=== PATIENT | male | born 1965 | race Hispanic/Latino ===

== ENCOUNTER 2022-09-16 09:31 | Emergency (ER) | payer OTHER ==
--- OUTSIDE RECORDS SUMMARY | 2022-09-16 09:34 | XMS REPORT | Continuity of Care Document ---
:1965 Author Organization [facility] t Address [address] [place] [address] [place] [id number] Care Team Providers Name Role [facility] Primary Care Physician Unavailable Darci Grande Attending Clinician DARCI KHAN Attending Clinician Unavailable JORJE Attending Clinician Unavailable DARCI KHAN Admitting Clinician Unavailable JORJE Admitting Clinician Unavailable Payers Payer Name Policy Type Policy Number Effective Date Expiration Date S ourkwabena Problems Condition Condition Condition Status Onset Resolution Last Treating Co mments Source Name Details Category Date Date Treatment Clinician Date No known No known Disease Unive rs active active ity of problems problems [facility] Allergies, Adverse Reactions, Alerts Allergy Allergy Status Severity Reaction(s) Onset Inactive Treating Comm ents Source Name Type Date Date Clinician NO KNOWN Drug Active Univers ALLERGIE Class ity of S [facility] Social History Social Habit Start Date Stop Date Quantity Comments Source Exposure to 2022-01-08 2022-01-18 Unable to assess Univers ity of SARS-CoV-2 00:00:00 15:54:00 [facility] (event) [place] Alcohol intake 2015-04-28 2015-04-28 Current drinker Unive rsity of 00:00:00 00:00:00 of alcohol [facility] (finding) [place] Sex Ass[birth year] At [birth year] Universit y of 00:00:00 00:00:00 [facility] Smoking Status Start Date Stop Date Source Never smoked tobacco [facility] Medications Ordered Filled Start Stop Current Ordering Indication Dosage Frequency Signature Comments Components Source Medication Medication Date Date Medication? Clinician (SIG) Name Name ondansetron 4mg 4 mg, Slow Univers (ZOFRAN 01-18 IV Push, ity of (PF)) 21:00: 21:07 ONCE, 1 [place] injection 4 00 :00 dose, On Medi madhu mg Mon Branch 01/18/22 at 1600, KIMMIE ondansetron Yes [id number] 4mg Take 1 Univers 4 mg 01-18 tablet by ity of disintegrat 00:00: mouth [place] ing tablet 00 every 8 Medica l (eight) Branch hours as needed for Nausea and Vomiting (N/V). ciprofloxac Yes [id number] 250mg Take 1 Univers in HCl 250 01-18 tablet by [place]y of mg tablet 00:00[place] 00 the Medical morning [place] and 1 tablet in the evening. traMADOL 2014-05 Yes 50mg Take 1 Tab Uni vers (ULTRAM) 50 2-28 by mouth ity of mg tablet 00:00: every 6 [place] 00 (six) Medical hours as Branch needed for Pain (scale 4-6). Chris Isabel PA-C / Emiliano López MD BILLY# [id number] DPS# [id number] Lic.# [id number] NPI# [id number] Vital Signs Vital Name Observation Time Observation Value Comments Source Systolic blood 2022-01-19 00:00:00 113 mm[Hg] Univer sity [facility] Diastolic blood 2022-01-19 00:00:00 98 mm[Hg] [facility] Heart rate 2022-01-19 00:00:00 94 /min [facility] Respiratory rate 2022-01-19 00:00:00 16 /min [facility] Oxygen saturation in 2022-01-19 00:00:00 98 /min [facility] Arterial blood by [place] Medi madhu Pulse oximetry Branch Body temperature 2022-01-18 22:00:00 37.11 [facility] Body height 2022-01-18 20:29:00 165.1 cm [facility] Body weight 2022-01-18 20:29:00 115.667 kg [facility] BMI 2022-01-18 20:29:00 42.43 kg/m2 [facility] Procedures Procedure Date / Time Performed Performing Clinician Zoe molina US ABDOMEN LIMITED 2022-01-18 23:15:39 [facility] Khan [facility] LIPASE 2022-01-18 21:07:00 Darci Khan [facility] COMP. METABOLIC PANEL 2022-01-18 21:07:00 Darci Khan [facility] ([id number]) [facility] CBC WITH DIFF 2022-01-18 21:07:00 Darci Khan [facility] URINALYSIS 2022-01-18 20:48:00 Darci Khan [facility] CONSENT/REFUSAL FOR 2022-01-18 20:24:05 Doctor Unassigned, No Un [facility] DIAGNOSIS AND Name [facility] TREATMENT Encounters Start End Encounter Admission Attending Care Care Encounter Source Date/Time Date/Time Type Type Clinicians Facility Department ID 2022-01-18 2022-01-18 Emergency [facility] [id number] Univers 15:31:00 19:19:00 Darci ALEXANDER [id number] [facility] [id number] [facility] [id number] [facility] 084 Branch 2022-01-18 2022-01-18 Emergency X BILL [facility] ERT [id number] Univers 15:31:00 19:19:00 DARCI childs [facility] 2021-11-13 2021-11-13 Outpatient FERGUSON_VIRGIE MANZANARES [facility] [id number] [place] 02:02:00 02:02:00 HN [id number] da [facility] Program Results This patient has no known results.
[2022-09-16] MEDS ORDERED: PANTOPRAZOLE 40 MG INJ ONE (10:36)
--- NOTE | 2022-09-16 10:39 | RAD REPORT ---
EXAM DESCRIPTION: RADReagant Pa And Lat (2 Views)09/16/2022 10:29 am CLINICAL HISTORY: Cough COMPARISON: None FINDINGS: Mild left lower lobe opacity may represent a mild pneumonia Hiatal hernia is suspected. Heart is normal size Right lung appears clear
[2022-09-16 10:50] LABS: Absolute Lymphocytes (CBC) 0.5 K/uL (0.7-4.9); Hematocrit 36.2 % (39.6-49.0); Lymphocytes % 22.6 % (15.3-44.8); MCV 82.4 fL (80-100); MPV 7.4 fL (7.6-11.3); Protime INR 1.21; RBC Red Blood Cell Count 4.39 M/uL (4.33-5.43)
[2022-09-16] MEDS ORDERED: VITAMIN K (ADULT) 10 MG/ML ONE (10:57)
[2022-09-16] MEDS ORDERED: CEFTRIAXONE 1000 MG/VIAL ONE (10:57)
[2022-09-16] MEDS ORDERED: AZITHROMYCIN 250 MG TAB ONE (10:57)
[2022-09-16 11:05] LABS: Albumin 3.3 g/dL (3.4-5.0); Bilirubin Total 1.4 mg/dL (0.2-1.0); Potassium 3.8 mEq/L (3.5-5.1); Protein, Total 7.8 g/dL (6.4-8.2)
[2022-09-16] MEDS ORDERED: NA CHLORIDE 0.9% 0 ML ONE (11:08)
[2022-09-16 11:34] LABS: Specific Gravity 1.014 (1.005-1.030); Urine Bacteria None Seen /HPF (<20); Urine Bilirubin NEGATIVE (Negative); Urine Blood Trace (Negative); Urine Clarity Clear (Clear); Urine Color Yellow (Yellow); Urine Glucose NEGATIVE (Negative); Urine Protein NEGATIVE (Negative); Urine RBC <5 /HPF (None Seen); Urine Urobilinogen 2+ (Normal); Urine pH 6.5 (5.0-7.0)
--- NOTE | 2022-09-16 11:38 | RAD REPORT ---
EXAM DESCRIPTION: CT - Chest For Pe Angio - 09/16/2022 11:26 am CLINICAL HISTORY: Shortness of breath COMPARISON: None. TECHNIQUE: Dynamically enhanced axial 3 mm thick images of the chest were obtained during administra tion of 100 mL Isovue 370 IV contrast. Coronal and oblique reconstruction images were generated and r eviewed. Exam utilizes a protocol for optimal evaluation of pulmonary arterial tree. Maximum intensity projections 3D imaging was utilized All CT scans are performed using dose optimization technique as appropriate and may include automated exposure control or mA/KV adjustment according to patient size. FINDINGS: Suboptimal opacification of the pulmonary arteries. A pulmonary embolus is not seen. A thoracic aortic aneurysm is not noted. A pleural effusion is not seen. A pericardial effusion is not seen. Minimal left lower lobe atelectasis. No infiltrate Moderate hiatal hernia Spleen is partially included in the field of view. It is at least moderately enlarged. IMPRESSION: No gross central pulmonary embolus visualized
[2022-09-16 11:42] LABS: Blood Morphology Comment NOT SEEN (NOT SEEN); Platelet Estimate DECR; White Blood Cell Scan OK (OK)
--- NOTE | 2022-09-16 11:44 | ER ---
Nurse's Notes [facility] Name: Lupillo Parra Age: 57 yrs Sex: Male : 1965 Arrival Date: 09/16/2022 Time: 09:31 Bed 16 Private MD: Diagnosis: Other cirrhosis of liver;Pneumonia due to other specified bacteria-LEFT LOWER LOBE;Hemoptysis;Atelectasis Presentation: 09/16 09:42 Chief complaint: Patient states: n/v, diarrhea, with cough x 2 days. stated his phlegm kc6 and mucous has blood in it. Coronavirus screen: Vaccine status: Patient reports receiving the 2nd dose of the covid vaccine. At this time, the client does not indicate any symptoms associated with coronavirus-19. Ebola Screen: No symptoms or risks identified at this time. Resp Distress? No respiratory distress is noted at this time. Initial Sepsis Screen: Does the patient meet any 2 criteria? No. Patient's initial sepsis screen is negative. Does the patient have a suspected source of infection? No. Patient's initial sepsis screen is negative. Risk Assessment: Do you want to hurt yourself or someone else? Patient reports no desire to harm self or others. Onset of symptoms was September 16, 2022. 09:42 Method Of Arrival: Ambulatory [facility] 09:42 Acuity: ANITA 3 kc6 Triage Assessment: 09:44 General: Appears in no apparent distress. comfortable, Behavior is calm, cooperative, kc6 appropriate for age. Pain: Denies pain. EENT: Reports nasal congestion. Respiratory: Airway is patent Trachea midline Respiratory effort is even, unlabored, Respiratory pattern is regular, symmetrical. GI: Reports diarrhea, nausea, vomiting, Patient currently denies abdominal pain. Historical: - Allergies: 09:44 No Known Allergies; kc6 - PMHx: 09:44 liver problems; kc6 - PSHx: 09:44 Appendectomy; kc6 - Immunization history:: Client reports receiving the 2nd dose of the Covid vaccine, Flu vaccine is up to date. - Social history:: Smoking status: Patient denies any tobacco usage or history of. - Family history:: not pertinent. Screenin:45 [facility] ED Fall Risk Assessment (Adult) History of falling in the last 3 months, ko1 including since admission No falls in past 3 months (0 pts) Confusion or Disorientation No (0 pts) Intoxicated or Sedated No (0 pts) Impaired Gait No (0 pts) Mobility Assist Device Used No (0 pt) Altered Elimination No (0 pt) Score/Fall Risk Level 0 - 2 = Low Risk Oriented to surroundings, Maintained a safe environment, Educated pt \T\ family on fall prevention, incl call for assistance when getting out of bed, Assessed \T\ reinforced patient's understanding of fall precautions, Provided non-skid footwear, Hourly rounding (assess needs \T\ fall precautionary measures) done, Used ambulatory aids as needed (educated on \T\ assisted with), Used gait belt as appropriate. Abuse screen: Denies threats or abuse. Denies injuries from another. Nutritional screening: No deficits noted. Tuberculosis screening: No symptoms or risk factors identified. Assessment: 10:00 Neuro: No deficits noted. Cardiovascular: No deficits noted. Respiratory: Breath sounds ko1 are coarse bilaterally. GI: No deficits noted. : No deficits noted. EENT: No deficits noted. Derm: No deficits noted. Musculoskeletal: No deficits noted. Vital Signs: 09:42 BP 120 / 68; Pulse 87; Resp 19 S; Temp 98.3(O); Pulse Ox 97% on R/A; Weight 113.4 kg kc6 (R); Height 5 ft. 5 in. (R); Pain 0/10; 09:45 BP 113 / 65; Pulse 81; Resp 16; Pulse Ox 99% ; ko1 12:00 BP 108 / 68; Pulse 84; Resp 16; Pulse Ox 99% ; ko1 09:42 Body Mass Index 41.60 (113.40 kg, 165.1 cm) kc6 09:42 Pain Scale: Adult kc6 ED Course: 09:34 Patient arrived in ED. mr 09:37 Tani Flores MD is Attending Physician. [facility] 09:44 Triage completed. kc6 09:44 Arm band placed on. kc6 10:17 Keeley Sommers, LEBRON is Primary Nurse. ko1 10:24 Chest Pa And Lat (2 Views) XRAY In Process Unspecified. EDMS 10:30 Inserted saline lock: 20 gauge in left antecubital area, using aseptic technique. Blood ko1 collected. 10:33 SARS-COV-2 RT PCR Sent. ko1 10:33 Flu Sent. ko1 10:41 PT-INR Sent. ko1 10:41 Comprehensive Metabolic Panel Sent. ko1 10:41 CBC with Diff Sent. ko1 10:45 Patient has correct armband on for positive identification. Bed in low position. Call ko1 light in reach. Side rails up X 1. Pulse ox on. NIBP on. Warm blanket given. 10:45 No provider procedures requiring assistance completed. ko1 11:20 Urinalysis w/ reflexes Sent. ko1 11:28 CT Chest For PE Angio In Process Unspecified. EDNE 11:43 Timbo Carrillo MD is Referral Physician. [facility] 11:53 INCENTIVE SPIROMETRY Sent. ko1 12:23 IV discontinued, intact, bleeding controlled, No redness/swelling at site. Pressure ko1 dressing applied. Administered Medications: 10:40 Drug: Pantoprazole IVP 40 mg Route: IVP; Site: left antecubital; ko1 11:54 Follow up: Response: No adverse reaction ko1 11:36 Drug: Rocephin IV 1 grams Route: IV; Rate: per protocol; Site: left antecubital; ko1 11:50 Follow up: IV Status: Completed infusion; IV Intake: 50ml ko1 11:37 Drug: Phytonadione Sub-Q 10 mg Route: Sub-Q; Site: abdomen; ko1 11:54 Follow up: Response: No adverse reaction ko1 11:37 Drug: AZITHromycin PO 500 mg Route: PO; ko1 11:53 Follow up: Response: No adverse reaction ko1 Medication: 12:00 VIS not applicable for this client. ko1 Intake: 11:50 IV: 50ml; Total: 50ml. ko1 Outcome: 11:43 Discharge ordered by . [facility] 12:23 Discharged to home ambulatory. ko1 12:23 Condition: improved 12:23 Discharge instructions given to patient, Instructed on discharge instructions, follow up and referral plans. medication usage, Demonstrated understanding of instructions, follow-up care, medications, Prescriptions given X 3. 12:24 Patient left the ED. ko1 Signatures: Dispatcher [employer] Tani Duncan MD MD cha Rivera, Soniya mr Dos SantosPoonam RN RN kc6 Keeley Sommers RN RN ko1
--- NOTE | 2022-09-16 11:44 | EDPHYS ---
Physician Documentation [facility] Name: Lupillo Parra Age: 57 yrs Sex: Male : 1965 Arrival Date: 09/16/2022 Time: 09:31 Bed 16 Private MD: ED Physician Tani Flores HPI: 09/16 10:49 This 57 yrs old Male presents to ER via Ambulatory with complaints of kerry Congestion. 10:49 The patient has shortness of breath at rest, with light activity. Onset: The kerry symptoms/episode began/occurred 2 day(s) ago. Duration: The symptoms are continuous, and are unchanged since they started. The patient's shortness of breath has no apparent modifying factors. The patient or guardian reports cough, that is intermittent, flu symptoms, arthralgias. Modifying factors: The symptoms are alleviated by nothing. the symptoms are aggravated by nothing. Associated signs and symptoms: Pertinent positives: productive cough, hemoptysis. Severity of symptoms: At their worst the symptoms were mild in the emergency department the symptoms are unchanged. Historical: - Allergies: 09:44 No Known Allergies; kc6 - PMHx: 09:44 liver problems; kc6 - PSHx: 09:44 Appendectomy; kc6 - Immunization history:: Client reports receiving the 2nd dose of the Covid vaccine, Flu vaccine is up to date. - Social history:: Smoking status: Patient denies any tobacco usage or history of. - Family history:: not pertinent. ROS: 10:49 Constitutional: Negative for fever, chills, and weight loss, Eyes: Negative for injury, kerry pain, redness, and discharge, ENT: Negative for injury, pain, and discharge, Neck: Negative for injury, pain, and swelling, Cardiovascular: Negative for chest pain, palpitations, and edema, Abdomen/GI: Negative for abdominal pain, nausea, vomiting, diarrhea, and constipation, Back: Negative for injury and pain, : Negative for injury, bleeding, discharge, and swelling, MS/Extremity: Negative for injury and deformity, Skin: Negative for injury, rash, and discoloration, Neuro: Negative for headache, weakness, numbness, tingling, and seizure, Psych: Negative for depression, anxiety, suicide ideation, homicidal ideation, and hallucinations, Allergy/Immunology: Negative for hives, rash, and allergies, Endocrine: Negative for neck swelling, polydipsia, polyuria, polyphagia, and marked weight changes, Hematologic/Lymphatic: Negative for swollen nodes, abnormal bleeding, and unusual bruising. 10:49 Respiratory: Positive for cough, shortness of breath, at rest. Exam: 10:49 Constitutional: This is a well developed, well nourished patient who is awake, alert, kerry and in no acute distress. Head/Face: Normocephalic, atraumatic. Eyes: Pupils equal round and reactive to light, extra-ocular motions intact. Lids and lashes normal. Conjunctiva and sclera are non-icteric and not injected. Cornea within normal limits. Periorbital areas with no swelling, redness, or edema. ENT: Nares patent. No nasal discharge, no septal abnormalities noted. Tympanic membranes are normal and external auditory canals are clear. Oropharynx with no redness, swelling, or masses, exudates, or evidence of obstruction, uvula midline. Mucous membranes moist. Neck: Trachea midline, no thyromegaly or masses palpated, and no cervical lymphadenopathy. Supple, full range of motion without nuchal rigidity, or vertebral point tenderness. No Meningismus. Chest/axilla: Normal chest wall appearance and motion. Nontender with no deformity. No lesions are appreciated. Cardiovascular: Regular rate and rhythm with a normal S1 and S2. No gallops, murmurs, or rubs. Normal PMI, no JVD. No pulse deficits. Respiratory: Lungs have equal breath sounds bilaterally, clear to auscultation and percussion. No rales, rhonchi or wheezes noted. No increased work of breathing, no retractions or nasal flaring. Abdomen/GI: Soft, non-tender, with normal bowel sounds. No distension or tympany. No guarding or rebound. No evidence of tenderness throughout. Back: No spinal tenderness. No costovertebral tenderness. Full range of motion. Male : Normal genitalia with no discharge or lesions. Skin: Warm, dry with normal turgor. Normal color with no rashes, no lesions, and no evidence of cellulitis. MS/ Extremity: Pulses equal, no cyanosis. Neurovascular intact. Full, normal range of motion. Neuro: Awake and alert, GCS 15, oriented to person, place, time, and situation. Cranial nerves II-XII grossly intact. Motor strength 5/5 in all extremities. Sensory grossly intact. Cerebellar exam normal. Normal gait. Psych: Awake, alert, with orientation to person, place and time. Behavior, mood, and affect are within normal limits. Vital Signs: 09:42 BP 120 / 68; Pulse 87; Resp 19 S; Temp 98.3(O); Pulse Ox 97% on R/A; Weight 113.4 kg kc6 (R); Height 5 ft. 5 in. (R); Pain 0/10; 09:45 BP 113 / 65; Pulse 81; Resp 16; Pulse Ox 99% ; ko1 12:00 BP 108 / 68; Pulse 84; Resp 16; Pulse Ox 99% ; ko1 09:42 Body Mass Index 41.60 (113.40 kg, 165.1 cm) [facility] 09:42 Pain Scale: Adult kc6 MDM: 09:37 Patient medically screened. [facility] 10:51 Differential diagnosis: Anemia asthma, Bronchitis CHF exacerbation, Chronic Obstructive kerry Pulmonary Disease bronchitis, flu. Antibiotic administration: The patient is discharged and will get outpatient antibiotics, Amoxicillin, Zithromax. Differential Diagnosis: Obstructed Airway Bronchitis Influenza Upper Respiratory Infection Pneumonia. Immunization status: Influenza vaccine: within last 5 years. Data reviewed: vital signs, nurses notes, lab test result(s), radiologic studies, CT scan, plain films. Consideration of Admission/Observation Escalation of care including admission/observation considered. Independent interpretation of the following test(s) in the Emergency Department X-Ray: My interpretation is CHEST X RAY. Test considered but Not performed: Ultrasound NO ABD USG. Care significantly affected by the following chronic conditions: Liver Disease. Counseling: I had a detailed discussion with the patient and/or guardian regarding: the historical points, exam findings, and any diagnostic results supporting the discharge/admit diagnosis, lab results, radiology results, the need for outpatient follow up, for definitive care, a family practitioner, a rn mental health. 09/16 09:38 Order name: Flu; Complete Time: 11:33 [facility] 09/16 09:38 Order name: SARS-COV-2 RT PCR; Complete Time: 11:33 [facility] 09/16 10:20 Order name: CBC with Diff [facility] 09/16 10:20 Order name: Comprehensive Metabolic Panel; Complete Time: 11:33 [facility] 09/16 10:20 Order name: PT-INR; Complete Time: 11:33 [facility] 09/16 10:20 Order name: Urinalysis w/ reflexes; Complete Time: 11:41 [facility] 09/16 11:43 Order name: CBC Smear Scan EDFL 09/16 09:38 Order name: Chest Pa And Lat (2 Views) XRAY; Complete Time: 11:33 [facility] 09/16 10:47 Order name: CT Chest For PE Angio; Complete Time: 11:41 [facility] 09/16 11:44 Order name: INCENTIVE SPIROMETRY kerry Administered Medications: 10:40 Drug: Pantoprazole IVP 40 mg Route: IVP; Site: left antecubital; ko1 11:54 Follow up: Response: No adverse reaction ko1 11:36 Drug: Rocephin IV 1 grams Route: IV; Rate: per protocol; Site: left antecubital; ko1 11:50 Follow up: IV Status: Completed infusion; IV Intake: 50ml ko1 11:37 Drug: Phytonadione Sub-Q 10 mg Route: Sub-Q; Site: abdomen; ko1 11:54 Follow up: Response: No adverse reaction ko1 11:37 Drug: AZITHromycin PO 500 mg Route: PO; ko1 11:53 Follow up: Response: No adverse reaction ko1 Disposition Summary: 09/16/22 11:43 Discharge Ordered Location: Home [facility] Problem: new kerry Symptoms: have improved kerry Condition: Stable kerry Diagnosis - Other cirrhosis of liver kerry - Pneumonia due to other specified bacteria - LEFT LOWER LOBE kerry - Hemoptysis kerry - Atelectasis kerry Followup: kerry - With: Private Physician - When: 2 - 3 days - Reason: Recheck today's complaints, Continuance of care, Re-evaluation by your physician Followup: kerry - With: - When: 2 - 3 days - Reason: Recheck today's complaints, Re-evaluation by your physician Discharge Instructions: - Discharge Summary Sheet kerry - Cirrhosis kerry - Hemoptysis kerry - Community-Acquired Pneumonia, Adult kerry - How to Use an Incentive Spirometer kerry - Cough, Adult, [id number] kerry - Community-Acquired Pneumonia, Child, Woyw-up-Hxta kerry - Cough, Adult kerry - Hemoptysis, [id number] [facility] Forms: - Medication Reconciliation Form kerry - Thank You Letter kerry - Antibiotic Education kerry - Prescription Opioid Use kerry Prescriptions: - propranolol 10 mg Oral tablet - take 1 tablet by ORAL route every 12 hours; 30 tablet; Refills: 0, Product kerry Selection Permitted - Protonix 40 mg Oral Tablet - take 1 tablet by ORAL route once daily; 30 tablet; Refills: 0, Product kerry Selection Permitted - Zithromax 500 mg Oral Tablet - take 1 tablet by ORAL route once daily for 5 days; 5 tablet; Refills: 0, kerry Product Selection Permitted Signatures: Dispatcher [employer] Tani Duncan MD MD cha Campbell, Kaitlyn RN RN kc6 Keeley Sommers RN RN ko1
[2022-09-16 13:07] VITALS: TEMP 98.3
[2022-09-16 13:08] VITALS: O2SAT 99
[2022-09-16 13:10] VITALS: BP 108/68
== END 2022-09-16 12:24 | disposition home or self-care (01) ==
LOC: ER 09:31
DX: J15.8 Pneumonia due to other specified bacteria (principal); J98.11 Atelectasis; K74.60 Unspecified cirrhosis of liver; Z20.822 Contact with and (suspected) exposure to COVID-19
CPT/HCPCS: 85025; 81001; 36415; 85610; 80053; 87804 ×2; 71275; 71046; 96375; 96372; 96374; 99284; U0003; Q9967; J3430; C9113; J0696; J7030